=== PATIENT | female | born 1970 | race Caucasian/White ===

== ENCOUNTER 2024-05-26 04:43 | Inpatient (IN) | payer SELFPAY ==
[~2024-05-26] VITALS: Ht 162.6 cm; Wt 77.1 kg
[2024-05-26 05:05] VITALS: BP_SYST 133; PULSE 70; RESP 22; TEMP 97.4; O2SAT 96
[2024-05-26] MEDS: KETOROLAC TROMETHAMINE 30 MG VIAL IVP ONE (05:32)
[2024-05-26] MEDS: ONDANSETRON HCL 4 MG/2 ML VIAL IVP ONE (05:33)
[2024-05-26 05:43] LABS: BASOPHILS % (AUTO) 0.4 % (0.0-2.0); EOSINOPHILS # (AUTO) 0.2 K/uL (0.0-0.4); EOSINOPHILS % (AUTO) 1.7 % (0.0-4.0); HEMATOCRIT 39.3 % (36-48); HEMOGLOBIN 13.6 g/dL (12.0-16.0); LYMPHOCYTES # (AUTO) 1.2 K/uL (1.0-5.5); LYMPHOCYTES % (AUTO) 11.6 % (20.5-51.5); MEAN CORPUSCULAR HEMOGLOBIN 31 pg (27-31); MEAN CORPUSCULAR HGB CONC 35 % (32-36); MEAN CORPUSCULAR VOLUME 88 fL (79.0-98.0); MONOCYTES # (AUTO) 0.7 K/uL (0.0-1.0); MONOCYTES % (AUTO) 7.2 % (1.7-9.3); NEUTROPHILS % (AUTO) 79.1 % (40.0-70.0); PLATELET COUNT (AUTO) 169 K/uL (130-430); RED BLOOD CELL COUNT(AUTO) 4.46 MIL/uL (4.2-6.2); RED CELL DISTRIBUTION WIDTH 13.5 % (9.0-15.0); WHITE BLOOD COUNT (AUTO) 10.1 K/uL (4.8-10.8)
[2024-05-26 06:14] LABS: INR 0.9 (0.8-1.2); PROTHROMBIN TIME 9.7 SECS (9.5-12.5)
[2024-05-26 06:21] LABS: ALANINE AMINOTRANSFERASE 31 U/L (12-78); ALBUMIN 3.8 g/dL (3.4-4.8); ANION GAP 9 (5-15); ASPARTATE AMINOTRANSFERASE 25 U/L (10-37); CALCIUM 9.1 mg/dL (8.4-11.0); CARBON DIOXIDE 26 mmol/L (23-29); CHLORIDE 103 mmol/L (98-107); CREATININE 0.73 mg/dL (0.55-1.30); GFR AFRICAN AMERICAN 106 mL/min (>90); GLUCOSE 98 mg/dL (74-106); POTASSIUM 3.5 mmol/L (3.5-5.1); SODIUM SERUM 138 mmol/L (136-145); TOTAL BILIRUBIN 0.7 mg/dL (0.0-1.0); TOTAL PROTEIN, SERUM 7.3 g/dL (6.4-8.3); UREA NITROGEN, BLOOD 18 mg/dL (8-21)
[2024-05-26 06:24] LABS: BILIRUBIN,DIRECT 0.2 mg/dL (0.0-0.3)
[2024-05-26 06:28] LABS: GFR NON AFRICAN-AMERICAN 88 mL/min (>90)
[2024-05-26 06:44] LABS: BILIRUBIN,URINE NEGATIVE (NEGATIVE); CLARITY/URINE SL CLOUDY (CLEAR); COLOR,URINE YELLOW (YELLOW); GLUCOSE,URINE NEGATIVE (NEGATIVE); KETONES,URINE NEGATIVE (NEGATIVE); LEUKOCYTE ESTERASE ,URINE 1+ (NEGATIVE); NITRITE, URINE NEGATIVE (NEGATIVE); PROTEIN URINE NEGATIVE (NEGATIVE); UROBILINOGEN,URINE 0.2 (0.2-1.0)
[2024-05-26] MEDS: ASPIRIN 81 MG TAB.CHEW PO ONE (07:29)
[2024-05-26] MEDS: NITROGLYCERIN 1 INCH (GM) OINT. TP ONE (07:29)
[2024-05-26 07:31] LABS: BLOOD, URINE TRACE (NEGATIVE)
[2024-05-26 07:39] LABS: BACTERIA,URINE RARE /HPF (None Seen)
[2024-05-26] MEDS ORDERED: iohexoL 350 mgI/mL, 100 ML INFUS..BTL IV ONE (08:30)
[2024-05-26] MEDS ORDERED: HYDROcodone/ACETAMIN 10-325 MG TAB PO PRN (10:15)
[2024-05-26] MEDS ORDERED: traMADol HCL HCL 50 MG TABLET (ULTRAM) PO PRN (11:30)
[2024-05-26 12:04] LABS: AMYLASE 52 U/L (0-100); LIPASE 74 U/L (16-77)
[2024-05-26] MEDS: traMADol HCL HCL 50 MG TABLET (ULTRAM) PO PRN (14:32)
[2024-05-26] MEDS: ONDANSETRON HCL 4 MG/2 ML VIAL IVP PRN (18:43)
[2024-05-26 20:00] VITALS: BP_SYST 146; PULSE 62; RESP 18; TEMP 98.8; O2SAT 96
[2024-05-26 22:00] VITALS: O2SAT 95
[2024-05-26 23:32] VITALS: BP_SYST 146; PULSE 62; RESP 18; TEMP 98.5
[2024-05-27] VITALS (7 sets, daily range): BP systolic 127–148; PULSE 48–99; RESP 16–20; TEMP 96.7–98.9; O2SAT 96–100
[2024-05-27 03:22] LABS: ALANINE AMINOTRANSFERASE 28 U/L (12-78); ALBUMIN 3.8 g/dL (3.4-4.8); ANION GAP 4 (5-15); ASPARTATE AMINOTRANSFERASE 23 U/L (10-37); CALCIUM 9.2 mg/dL (8.4-11.0); CARBON DIOXIDE 32 mmol/L (23-29); CHLORIDE 101 mmol/L (98-107); CREATININE 0.76 mg/dL (0.55-1.30); GFR AFRICAN AMERICAN 101 mL/min (>90); GLUCOSE 102 mg/dL (74-106); POTASSIUM 4.1 mmol/L (3.5-5.1); SODIUM SERUM 137 mmol/L (136-145); TOTAL BILIRUBIN 1.4 mg/dL (0.0-1.0); TOTAL PROTEIN, SERUM 7.4 g/dL (6.4-8.3); UREA NITROGEN, BLOOD 15 mg/dL (8-21)
[2024-05-27 03:35] LABS: GFR NON AFRICAN-AMERICAN 84 mL/min (>90)
[2024-05-27 03:42] LABS: BASOPHILS % (AUTO) 0.2 % (0.0-2.0); EOSINOPHILS # (AUTO) 0.1 K/uL (0.0-0.4); EOSINOPHILS % (AUTO) 2.4 % (0.0-4.0); HEMATOCRIT 41.3 % (36-48); HEMOGLOBIN 13.5 g/dL (12.0-16.0); LYMPHOCYTES # (AUTO) 1.6 K/uL (1.0-5.5); LYMPHOCYTES % (AUTO) 26.1 % (20.5-51.5); MEAN CORPUSCULAR HEMOGLOBIN 30 pg (27-31); MEAN CORPUSCULAR HGB CONC 33 % (32-36); MEAN CORPUSCULAR VOLUME 90 fL (79.0-98.0); MONOCYTES # (AUTO) 0.4 K/uL (0.0-1.0); MONOCYTES % (AUTO) 7.3 % (1.7-9.3); NEUTROPHILS # (AUTO) 3.9 K/uL (1.8-7.7); PLATELET COUNT (AUTO) 167 K/uL (130-430); RED BLOOD CELL COUNT(AUTO) 4.59 MIL/uL (4.2-6.2); RED CELL DISTRIBUTION WIDTH 13.5 % (9.0-15.0); WHITE BLOOD COUNT (AUTO) 6.1 K/uL (4.8-10.8)
[2024-05-27 06:42] LABS: TRIGLYCERIDES 151 mg/dL (30-150)
[2024-05-27 06:43] LABS: CHOLESTEROL 221 mg/dL (<200); HDL CHOLESTEROL 84 mg/dL (>55)
[2024-05-27 23:27] LABS: CANNABINOID, URINE POSITIVE (NEG <=50)
[2024-05-27 23:28] LABS: BARBITURATE, URINE NEGATIVE (NEG <=200); BENZODIAZEPINE, URINE NEGATIVE (NEG <=150); COCAINE, URINE NEGATIVE (NEG <=150); METHAMPHETAMINES SCREEN,URINE NEGATIVE (NEG <=500); OPIATE, URINE NEGATIVE (NEG <=100); PHENCYCLIDINE SCREEN,URINE NEGATIVE (NEG <=25); UR TRICYCLIC ANTIDEPRESSANTS NEGATIVE (NEG <=300); URINE AMPHETAMINE NEGATIVE (NEG <=500); URINE METHADONE NEGATIVE (NEG <=200); URINE OXYCODONE SCREEN NEGATIVE (NEG <=100)
[2024-05-28 09:53] VITALS: BP_SYST 132; PULSE 54; RESP 18; TEMP 97.2; O2SAT 96
[2024-05-28 13:59] VITALS: BP_SYST 130; PULSE 59; RESP 16; TEMP 97.4; O2SAT 96
[2024-05-28 15:03] VITALS: BP_SYST 140; PULSE 60; RESP 20; TEMP 98; O2SAT 95
== END 2024-05-28 14:57 | disposition home or self-care (01) | DRG 313 ==
LOC: SED 04:43 → STU 07:58
PROVIDERS: ADMIT Internal Medicine; ATTEND Internal Medicine
DX: R07.89 Other chest pain (principal); G89.4 Chronic pain syndrome; G43.909 Migraine, unspecified, not intractable, without status migrainosus; J45.909 Unspecified asthma, uncomplicated; Z88.5 Allergy status to narcotic agent; Z87.891 Personal history of nicotine dependence; Z87.11 Personal history of peptic ulcer disease; Z86.73 Personal history of transient ischemic attack (TIA), and cerebral infarction without residual deficits; Z88.0 Allergy status to penicillin; Z79.899 Other long term (current) drug therapy; Z88.8 Allergy status to other drugs, medicaments and biological substances
CPT/HCPCS: 36415; 71045; 71275; 80048; 80053; 80061; 80076; 80307; 81000; 81001; 81015; 82150; 83690; 83880; 84484; 85025; 85379; 85610; 85730; 93005; 93017; 93306; 93970; 96374; 99285; G0378; J1885; J2405; Q9967